=== PATIENT | female | born 1970 | race Caucasian/White ===

== ENCOUNTER 2017-01-25 06:53 | Emergency (ER) | payer OTHER, MEDICAID ==
[~2017-01-25] VITALS: Ht 165.1 cm; Wt 98.0 kg
[2017-01-25] MEDS ORDERED: KETOROLAC 60MG/2ML VIAL IM ONE (07:45)
[2017-01-25] MEDS ORDERED: LIDOCAINE HCL 1% 20ML VIAL (Pyxis) INJ MC ONE (08:45)
[2017-01-25] MEDS ORDERED: TETANUS, DIPHTHERIA, PERTUSSIS VAC/PF 0.5ML (>7YR OLD) IM ONE (08:45)
[2017-01-25] MEDS ORDERED: BACITRACIN ZINC OINT UDPKT TOP ONE (08:45)
[2017-01-25] MEDS ORDERED: TRAMADOL 50MG TABLET PO ONE (11:00)
[2017-01-25 12:30] VITALS: BP 161/89
== END 2017-01-25 12:31 | disposition home or self-care (01) ==
LOC: ER 07:59
DX: S99.921A Unspecified injury of right foot, initial encounter (principal); I10 Essential (primary) hypertension; Z88.0 Allergy status to penicillin; W22.8XXA Striking against or struck by other objects, initial encounter; Y93.89 Activity, other specified; Y92.89 Other specified places as the place of occurrence of the external cause; Y99.8 Other external cause status
CPT/HCPCS: 73630; 81025; 90471; 90715; 96372; 99284; J1885; J3490; X7700; Z7610

== ENCOUNTER 2017-04-27 03:03 | Inpatient (IN) | payer OTHER, MEDICAID ==
[~2017-04-27] VITALS: Ht 160 cm; Wt 93.9 kg
[2017-04-27] MEDS ORDERED: ONDANSETRON HCL 4MG/2ML VIAL IV STA (04:56)
[2017-04-27] MEDS ORDERED: NITROGLYCERIN OINT 1GM/INCH UDPKT TD STA (04:56)
[2017-04-27] MEDS ORDERED: MORPHINE SULFATE 4 MG/ML CPJ (NOT FOR IM USE) IV STA (04:56)
[2017-04-27 05:24] LABS: BASOPHILS % 0.7 % (0.0-2.0); EOSINOPHILS % 4.8 % (0.0-5.0); HEMATOCRIT. 33.8 % (36.0-48.0); LYMPHOCYTES % 43.4 % (20.0-50.0); MEAN CORPUSCULAR HEMOGLOBIN 28.3 pg (28.0-32.0); MEAN CORPUSCULAR VOLUME 86.5 fL (81.0-99.0); MEAN PLATELET VOLUME 7.3 fl (7.4-10.4); MONOCYTES % 7.9 % (2.0-8.0); NEUTROPHILS % 43.2 % (40.0-76.0); PLATELET 279 x1000/uL (130-400); RED BLOOD CELL COUNT 3.91 mill/uL (4.2-5.4); RED CELL DISTRIBUTION WIDTH 17.2 % (11.6-14.6)
[2017-04-27 05:41] LABS: CARBON DIOXIDE 26 mEq/L (21-32); CHLORIDE 100 mEq/L (98-107); TROPONIN I < 0.02 ng/mL (0.00-0.04)
[2017-04-27] MEDS ORDERED: METO25TA6 PO (09:32)
[2017-04-27] MEDS ORDERED: HYDR25TA PO (09:33)
[2017-04-27 10:00] VITALS: BP 149/85
[2017-04-27 10:33] VITALS: BP 142/87
[2017-04-27] MEDS ORDERED: ACETAMINOPHEN 325MG TABLET PO PRN (10:45)
[2017-04-27] MEDS ORDERED: ONDANSETRON HCL 4MG/2ML VIAL IV PRN (10:45)
[2017-04-27] MEDS ORDERED: CLONIDINE 0.1MG TABLET PO PRN (10:45)
[2017-04-27] MEDS ORDERED: MAGNESIUM/ALUMINUM HYDROXIDE/SIMETHICONE 30ML UDC PO PRN (10:45)
[2017-04-27] MEDS ORDERED: DIPHENHYDRAMINE 50MG/ML VIAL IV PRN (10:45)
[2017-04-27] MEDS: METOPROLOL TARTRATE 25MG TABLET PO SCH ×2 (11:05→20:18)
[2017-04-27] MEDS: ASPIRIN 81MG EC TABLET PO SCH (11:05)
[2017-04-27] MEDS: HYDROCHLOROTHIAZIDE 25MG TABLET PO SCH (11:05)
[2017-04-27] MEDS: MORPHINE SULFATE 4 MG/ML CPJ (NOT FOR IM USE) IV PRN ×3 (11:26→20:26)
[2017-04-27 12:00] VITALS: BP 153/86
[2017-04-27] MEDS: SODIUM CHLORIDE 0.9% INJ 3ML FLUSH IVF SCH ×2 (13:19→20:26)
[2017-04-27] MEDS ORDERED: IOHEXOL-350 100 ML BOTTLE ONE (14:04)
[2017-04-27] MEDS ORDERED: SODIUM CHLORIDE 0.9% 10ML VIAL ONE (14:04)
[2017-04-27] MEDS ORDERED: ALPRAZOLAM 0.25 MG TABLET PO SCH (14:30)
[2017-04-27] MEDS ORDERED: ALPRAZOLAM 0.25 MG TABLET PO PRN (14:30)
[2017-04-27] MEDS: ENOXAPARIN 30MG/0.3ML SYR SUBCUT SCH (15:50)
[2017-04-27 16:00] VITALS: BP 138/86
[2017-04-27 20:00] VITALS: BP 148/85
[2017-04-28] VITALS: BP 142/87
[2017-04-28] MEDS: MORPHINE SULFATE 4 MG/ML CPJ (NOT FOR IM USE) IV PRN ×3 (00:42→11:04)
[2017-04-28 04:00] VITALS: BP 131/90
[2017-04-28] MEDS: ENOXAPARIN 30MG/0.3ML SYR SUBCUT SCH (06:12)
[2017-04-28] MEDS: SODIUM CHLORIDE 0.9% INJ 3ML FLUSH IVF SCH (06:16)
[2017-04-28 06:59] LABS: BASOPHILS % 0.4 % (0.0-2.0); EOSINOPHILS % 4.7 % (0.0-5.0); HEMATOCRIT. 34.2 % (36.0-48.0); HEMOGLOBIN. 11.5 g/dL (12.0-16.0); LYMPHOCYTES % 34.4 % (20.0-50.0); MEAN CORPUSCULAR HEMOGLOBIN 28.9 pg (28.0-32.0); MEAN CORPUSCULAR VOLUME 85.9 fL (81.0-99.0); MEAN PLATELET VOLUME 7.8 fl (7.4-10.4); MONOCYTES % 6.5 % (2.0-8.0); PLATELET 281 x1000/uL (130-400); RED BLOOD CELL COUNT 3.98 mill/uL (4.2-5.4)
[2017-04-28 07:35] LABS: CARBON DIOXIDE 27 mEq/L (21-32); CHLORIDE 97 mEq/L (98-107)
[2017-04-28 07:49] LABS: HDL CHOLESTEROL 70 mg/dL (40-59); LDL CHOLESTEROL 69 mg/dL (5-100); TROPONIN I < 0.02 ng/mL (0.00-0.04)
[2017-04-28 08:00] VITALS: BP 127/88
[2017-04-28] MEDS: ASPIRIN 81MG EC TABLET PO SCH (08:53)
[2017-04-28] MEDS: METOPROLOL TARTRATE 25MG TABLET PO SCH (08:53)
[2017-04-28] MEDS: HYDROCHLOROTHIAZIDE 25MG TABLET PO SCH (08:53)
[2017-04-28 12:00] VITALS: BP 136/88
[2017-04-28 16:27] VITALS: BP 137/87
== END 2017-04-28 16:55 | disposition home or self-care (01) | DRG 206 ==
LOC: ER 03:03 → 5WST 05:06 → CANRESERV 07:09 → ENRESERV 07:09
PROVIDERS: ADMIT Internal Medicine; ATTEND Internal Medicine
DX: M94.0 Chondrocostal junction syndrome [Tietze] (principal); I11.9 Hypertensive heart disease without heart failure; F41.0 Panic disorder [episodic paroxysmal anxiety]; F43.9 Reaction to severe stress, unspecified; F32.9 Major depressive disorder, single episode, unspecified; F45.8 Other somatoform disorders; E66.9 Obesity, unspecified; F41.8 Other specified anxiety disorders; Z88.0 Allergy status to penicillin; Z98.891 History of uterine scar from previous surgery; Z98.51 Tubal ligation status; Z82.49 Family history of ischemic heart disease and other diseases of the circulatory system; Z80.3 Family history of malignant neoplasm of breast; Z90.710 Acquired absence of both cervix and uterus; Z90.722 Acquired absence of ovaries, bilateral; Z88.8 Allergy status to other drugs, medicaments and biological substances; Z68.36 Body mass index [BMI] 36.0-36.9, adult
CPT/HCPCS: 36415; 71010; 71275; 80048; 80053; 80061; 83690; 84484; 85025; 85379; 93005; 93306; 96374; 96375; 99285; A4216; J1650; J2270; J2405; Q9967

== ENCOUNTER 2017-05-21 02:53 | Emergency (ER) | payer OTHER, MEDICAID ==
[~2017-05-21] VITALS: Ht 160 cm; Wt 87.0 kg
[~2017-05-21 02:53] MED LIST: HYDR25TA PO; METO25TA6 PO
[2017-05-21] MEDS ORDERED: ONDANSETRON HCL 4MG/2ML VIAL IV STA (03:34)
[2017-05-21] MEDS ORDERED: FAMOTIDINE 20MG/2ML VIAL IV STA (03:34)
[2017-05-21] MEDS ORDERED: MORPHINE SULFATE 4 MG/ML CPJ (NOT FOR IM USE) IV STA (03:34)
[2017-05-21] MEDS ORDERED: SODIUM CHLORIDE 0.9% 1,000 ML IV ONE (03:34)
[2017-05-21 04:00] LABS: BASOPHILS % 0.7 % (0.0-2.0); EOSINOPHILS % 4.2 % (0.0-5.0); HEMATOCRIT. 38.3 % (36.0-48.0); HEMOGLOBIN. 12.7 g/dL (12.0-16.0); LYMPHOCYTES % 46.8 % (20.0-50.0); MEAN CORPUSCULAR HEMOGLOBIN 28.6 pg (28.0-32.0); MEAN CORPUSCULAR VOLUME 86.5 fL (81.0-99.0); MEAN PLATELET VOLUME 7.4 fl (7.4-10.4); MONOCYTES % 5.4 % (2.0-8.0); NEUTROPHILS % 42.9 % (40.0-76.0); PLATELET 343 x1000/uL (130-400); RED BLOOD CELL COUNT 4.43 mill/uL (4.2-5.4); RED CELL DISTRIBUTION WIDTH 16.6 % (11.6-14.6)
[2017-05-21 04:04] LABS: INR 1.1; PROTHROMBIN TIME 11.2 sec (9.4-11.6)
[2017-05-21 04:13] LABS: CHLORIDE 98 mEq/L (98-107); ETHANOL BLOOD 172 mg/dL; TROPONIN I < 0.02 ng/mL (0.00-0.04)
[2017-05-21 04:15] LABS: CARBON DIOXIDE 26 mEq/L (21-32)
[2017-05-21 05:12] LABS: HCG SCREEN NEGATIVE
[2017-05-21 07:20] VITALS: BP 136/81
== END 2017-05-21 08:14 | disposition home or self-care (01) ==
LOC: ER 02:53
DX: K29.20 Alcoholic gastritis without bleeding (principal); F10.288 Alcohol dependence with other alcohol-induced disorder; Y90.6 Blood alcohol level of 120-199 mg/100 ml; Z88.0 Allergy status to penicillin; I10 Essential (primary) hypertension; K44.9 Diaphragmatic hernia without obstruction or gangrene
CPT/HCPCS: 36415; 71010; 74176; 80053; 83690; 83880; 84484; 84703; 85025; 85610; 93005; 96361; 96374; 96375; 99285; G0482; J2270; J2405; J3490; J7030; Z7610

== ENCOUNTER 2017-06-09 02:27 | Emergency (ER) | payer OTHER, MEDICAID | END 2017-06-09 11:53 | disposition left against medical advice (07) | LOC: ER 11:53 | DX: Z53.21 Procedure and treatment not carried out due to patient leaving prior to being seen by health care provider (principal) ==

== ENCOUNTER 2017-07-08 03:38 | Emergency (ER) | payer OTHER, MEDICAID ==
[~2017-07-08] VITALS: Ht 157.5 cm; Wt 75.0 kg
[2017-07-08] MEDS ORDERED: TETRACAINE 0.5% OPHTH DROPS 4ML BOTHEYE ONE (07:30)
[2017-07-08] MEDS ORDERED: ACETAMINOPHEN WITH CODEINE 300/30MG TABLET PO ONE (07:30)
[2017-07-08] MEDS ORDERED: FLUORESCEIN SODIUM 1MG/STRIP BOTHEYE ONE (07:30)
[2017-07-08 08:57] VITALS: BP 144/80
== END 2017-07-08 10:00 | disposition home or self-care (01) ==
LOC: ER 03:39
DX: H10.219 Acute toxic conjunctivitis, unspecified eye (principal); Z88.0 Allergy status to penicillin
CPT/HCPCS: 99283

== ENCOUNTER 2017-09-01 05:06 | Emergency (ER) | payer OTHER, MEDICAID | END 2017-09-01 05:52 | disposition left against medical advice (07) | LOC: ER 05:06 | DX: R51 Headache (principal); Z53.21 Procedure and treatment not carried out due to patient leaving prior to being seen by health care provider ==

== ENCOUNTER 2018-02-19 02:42 | Inpatient (IN) | payer OTHER, MEDICAID ==
[~2018-02-19] VITALS: Ht 160 cm; Wt 81.6 kg
[2018-02-19] MEDS ORDERED: MORPHINE SULFATE 4 MG/ML CPJ (NOT FOR IM USE) IV STA (04:13)
[2018-02-19] MEDS ORDERED: ONDANSETRON HCL 4MG/2ML VIAL IV STA (04:13)
[2018-02-19] MEDS ORDERED: NITROGLYCERIN OINT 1GM/INCH UDPKT TD STA (04:13)
[2018-02-19] MEDS ORDERED: ASPIRIN 81MG TABLET PO STA (04:13)
[2018-02-19 04:47] LABS: BASOPHILS % 0.8 % (0.0-2.0); EOSINOPHILS % 3.5 % (0.0-5.0); HEMATOCRIT. 33.7 % (36.0-48.0); LYMPHOCYTES % 36.3 % (20.0-50.0); MEAN CORPUSCULAR VOLUME 85.6 fL (81.0-99.0); MEAN PLATELET VOLUME 7.2 fl (7.4-10.4); MONOCYTES % 8.7 % (2.0-8.0); NEUTROPHILS % 50.7 % (40.0-76.0); PLATELET 410 x1000/uL (130-400); RED BLOOD CELL COUNT 3.94 mill/uL (4.2-5.4); RED CELL DISTRIBUTION WIDTH 18.1 % (11.6-14.6)
[2018-02-19 04:48] LABS: CHLORIDE 106 mEq/L (98-107)
[2018-02-19 10:07] VITALS: BP 132/80
[2018-02-19 10:54] VITALS: BP 132/80
[2018-02-19] MEDS ORDERED: NITROGLYCERIN 0.4MG TABLET SL SL PRN (11:00)
[2018-02-19] MEDS ORDERED: ONDANSETRON 4MG ODT PO NR (11:04)
[2018-02-19 12:12] VITALS: BP 134/86
[2018-02-19] MEDS: CELECOXIB 200MG CAPSULE PO SCH (12:36)
[2018-02-19] MEDS: HYDROCODONE/ACETAMINOPHEN 5/325MG TABLET PO PRN ×2 (13:25→18:26)
[2018-02-19 15:41] LABS: CLARITY URINE CLOUDY (CLEAR); COLOR URINE YELLOW (YELLOW); KETONES URINE NEGATIVE (NEGATIVE); LEUKOCYTE ESTERASE URINE NEGATIVE (NEGATIVE); NITRITE URINE NEGATIVE (NEGATIVE); OCCULT BLOOD URINE 3+ (NEGATIVE); PROTEIN URINE TRACE (NEGATIVE); SPECIFIC GRAVITY URINE 1.026 (1.005-1.030); UROBILINOGEN URINE 0.2 E.U./dL (0.2-1.0)
[2018-02-19 15:55] LABS: *AMPHETAMINES SCREEN URINE NEGATIVE (NEGATIVE)
[2018-02-19 15:56] LABS: *BARBITURATES SCREEN URINE NEGATIVE (NEGATIVE); *BENZODIAZEPINES SCREEN URINE NEGATIVE (NEGATIVE); *COCAINE SCREEN URINE NEGATIVE (NEGATIVE); METHADONE URINE SCREEN NEGATIVE (NEGATIVE); OPIATES URINE SCREEN NEGATIVE (NEGATIVE); PHENCYCLIDINE URINE SCREEN NEGATIVE (NEGATIVE)
[2018-02-19 15:57] LABS: CANNABINOID URINE SCREEN NEGATIVE (NEGATIVE)
[2018-02-19 16:30] VITALS: BP 118/74
[2018-02-19 17:14] VITALS: BP 118/74
[2018-02-19 20:00] VITALS: BP 115/71
[2018-02-19] MEDS: MORPHINE SULFATE 4 MG/ML CPJ (NOT FOR IM USE) IV PRN (21:30)
[2018-02-19] MEDS: METOPROLOL TARTRATE 25MG TABLET PO SCH (21:30)
[2018-02-20] VITALS: BP 123/78
[2018-02-20] MEDS: MORPHINE SULFATE 4 MG/ML CPJ (NOT FOR IM USE) IV PRN ×3 (02:08→14:36)
[2018-02-20 04:00] VITALS: BP 122/67
[2018-02-20 08:00] VITALS: BP 135/87
[2018-02-20] MEDS ORDERED: ASPIRIN 81MG TABLET PO SCH (09:00)
[2018-02-20] MEDS: CELECOXIB 200MG CAPSULE PO SCH (09:46)
[2018-02-20] MEDS: METOPROLOL TARTRATE 25MG TABLET PO SCH (09:47)
[2018-02-20 12:00] VITALS: BP 132/81
[2018-02-20 16:00] VITALS: BP 116/84
[2018-02-20 16:17] VITALS: BP 116/84
== END 2018-02-20 17:10 | disposition home or self-care (01) | DRG 313 ==
LOC: ER 02:42 → 6WST 04:53 → EDBEDREQTM 05:07 → EDBEDREQ 05:07 → ENRESERV 08:22
PROVIDERS: ADMIT Internal Medicine; ATTEND Internal Medicine
DX: R07.89 Other chest pain (principal); I10 Essential (primary) hypertension; D64.9 Anemia, unspecified; E66.9 Obesity, unspecified; Z88.0 Allergy status to penicillin; Z79.899 Other long term (current) drug therapy; Z68.31 Body mass index [BMI] 31.0-31.9, adult
CPT/HCPCS: 36415; 70450; 71045; 72141; 80053; 80305; 81003; 81025; 83880; 84443; 84484; 85025; 85379; 93005; 93306; 93970; 96374; 96375; 99285; J2270; J2405

== ENCOUNTER 2018-09-23 20:16 | Emergency (ER) | payer OTHER, MEDICAID ==
[~2018-09-23] VITALS: Ht 160 cm; Wt 91.0 kg
[2018-09-24] MEDS ORDERED: KETOROLAC 30MG/ML VIAL IM ONE (01:30)
[2018-09-24] MEDS ORDERED: HYDROCODONE/ACETAMINOPHEN 5/325MG TABLET PO ONE (03:30)
[2018-09-24 06:00] VITALS: BP 154/82
== END 2018-09-24 06:22 | disposition home or self-care (01) ==
LOC: ER 20:16
DX: S82.844A Nondisplaced bimalleolar fracture of right lower leg, initial encounter for closed fracture (principal); I10 Essential (primary) hypertension; Z88.0 Allergy status to penicillin; Z90.710 Acquired absence of both cervix and uterus; W01.0XXA Fall on same level from slipping, tripping and stumbling without subsequent striking against object, initial encounter; Y93.89 Activity, other specified; Y92.511 Restaurant or cafe as the place of occurrence of the external cause
CPT/HCPCS: 29505; 73590; 73610; 96372; 99283; J1885

== ENCOUNTER 2021-05-19 03:58 | Inpatient (IN) | payer MEDICAID, OTHER ==
[~2021-05-19] VITALS: Ht 160 cm; Wt 88.6 kg
[2021-05-19] MEDS ORDERED: DEXAMETHASONE 10 MG/ML VIAL IV ONE (04:45)
[2021-05-19] MEDS ORDERED: EPINEPHRINE 1:1000 1 MG/ML AMP SUBCUT ONE (04:45)
[2021-05-19] MEDS ORDERED: FAMOTIDINE 20MG/2ML VIAL IV ONE (04:45)
[2021-05-19] MEDS ORDERED: SODIUM CHLORIDE 0.9% 1,000 ML IV ONE (04:45)
[2021-05-19] MEDS ORDERED: DIPHENHYDRAMINE 50MG/ML VIAL IV ONE (04:45)
[2021-05-19 04:46] LABS: BASOPHILS % 0.8 % (0.0-2.0); EOSINOPHILS % 2.6 % (0.0-5.0); HEMATOCRIT. 31.5 % (36.0-48.0); HEMOGLOBIN. 10.1 g/dL (12.0-16.0); LYMPHOCYTES % 41.8 % (20.0-50.0); MEAN CORPUSCULAR VOLUME 71.6 fL (81.0-99.0); MONOCYTES % 9.7 % (2.0-8.0); NEUTROPHILS % 45.1 % (40.0-76.0); PLATELET 515 x1000/uL (130-400); RED CELL DISTRIBUTION WIDTH 18.1 % (11.6-14.6)
[2021-05-19 04:54] LABS: CHLORIDE 100 mEq/L (98-107)
[2021-05-19] MEDS ORDERED: CEFTRIAXONE 1 G PREMIX 50 ML IV ONE (06:15)
[2021-05-19] MEDS ORDERED: CLINDAMYCIN 600 MG in DEXTROSE 5% WATER 50 ML IV ONE ×2 (06:15→14:15)
[2021-05-19] MEDS ORDERED: CLINDAMYCIN 600MG PREMIX 50 ML IV ONE (06:45)
[2021-05-19] MEDS ORDERED: SODIUM CHLORIDE 0.9% 1000ML BAG (SEPSIS BOLUS) IV ONE (07:15)
[2021-05-19] MEDS ORDERED: ONDANSETRON HCL 4MG/2ML INJ IV PRN (11:45)
[2021-05-19] MEDS ORDERED: HYDRALAZINE 20MG/ML VIAL IV ONE (11:45)
[2021-05-19] MEDS ORDERED: MORPHINE SULFATE 2 MG/ML CPJ (NOT FOR IM USE) IV ONE (11:45)
[2021-05-19] MEDS ORDERED: DIPHENHYDRAMINE 50MG/ML VIAL IV PRN (11:45)
[2021-05-19] MEDS ORDERED: POTASSIUM CHLORIDE INJ 40 MEQ in DEXT 5% WATER 250 ML IV ONE (12:00)
[2021-05-19] MEDS ORDERED: CLINDAMYCIN 600MG PREMIX 50 ML IV NR (14:15)
[2021-05-19] MEDS: DEXT 5%/0.45% NACL 1000ML 1,000 ML IV SCH (14:26)
[2021-05-19] MEDS: METHYLPREDNISOLONE SOD SUCC 40 MG/ML VIAL IV SCH ×2 (14:27→22:20)
[2021-05-19] MEDS ORDERED: LABETALOL 5MG/ML SYR 20 MG/4 ML SYRINGE IV NR (16:15)
[2021-05-19] MEDS ORDERED: CLINDAMYCIN 600 MG in DEXTROSE 5% WATER 50 ML IV SCH (16:15)
[2021-05-19] MEDS ORDERED: HYDRALAZINE HCL 100MG TABLET PO NR (16:15)
[2021-05-19] MEDS: DIPHENHYDRAMINE 50MG/ML VIAL IV SCH (18:43)
[2021-05-19] MEDS: FAMOTIDINE 20MG/2ML VIAL IV SCH (22:20)
[2021-05-19] MEDS: AZTREONAM 2 GM in DEXT 5% WATER 100 ML IV SCH (22:20)
[2021-05-19] MEDS: HYDRALAZINE HCL 100MG TABLET PO SCH (22:20)
[2021-05-20] MEDS: DEXT 5%/0.45% NACL 1000ML 1,000 ML IV SCH ×2 (01:13→15:36)
[2021-05-20] MEDS: CLINDAMYCIN 600MG PREMIX 50 ML IV SCH ×3 (02:15→17:38)
[2021-05-20 05:29] LABS: BASOPHILS % 0.1 % (0.0-2.0); HEMATOCRIT. 29.6 % (36.0-48.0); HEMOGLOBIN. 9.2 g/dL (12.0-16.0); MEAN CORPUSCULAR HEMOGLOBIN 23.2 pg (28.0-32.0); MEAN CORPUSCULAR VOLUME 74.5 fL (81.0-99.0); MEAN PLATELET VOLUME 7.8 fl (7.4-10.4); MONOCYTES % 4.4 % (2.0-8.0); NEUTROPHILS % 78.5 % (40.0-76.0); PLATELET 500 x1000/uL (130-400); RED BLOOD CELL COUNT 3.97 mill/uL (4.2-5.4); RED CELL DISTRIBUTION WIDTH 18.6 % (11.6-14.6)
[2021-05-20 05:38] LABS: CHLORIDE 106 mEq/L (98-107)
[2021-05-20] MEDS: AZTREONAM 2 GM in DEXT 5% WATER 100 ML IV SCH ×3 (06:04→23:25)
[2021-05-20] MEDS: DIPHENHYDRAMINE 50MG/ML VIAL IV SCH ×5 (06:04→23:04)
[2021-05-20] MEDS: HYDRALAZINE HCL 100MG TABLET PO SCH ×3 (06:05→23:06)
[2021-05-20] MEDS: METHYLPREDNISOLONE SOD SUCC 40 MG/ML VIAL IV SCH ×3 (06:05→23:04)
[2021-05-20] MEDS: AMLODIPINE 10MG TABLET PO SCH ×2 (09:07→09:22)
[2021-05-20] MEDS: FAMOTIDINE 20MG/2ML VIAL IV SCH ×2 (09:56→23:04)
[2021-05-20 10:29] LABS: CLARITY URINE CLEAR (CLEAR); COLOR URINE YELLOW (YELLOW); KETONES URINE NEGATIVE (NEGATIVE); LEUKOCYTE ESTERASE URINE NEGATIVE (NEGATIVE); NITRITE URINE NEGATIVE (NEGATIVE); OCCULT BLOOD URINE 2+ (NEGATIVE); PROTEIN URINE NEGATIVE (NEGATIVE); SPECIFIC GRAVITY URINE 1.008 (1.005-1.030); UROBILINOGEN URINE 0.2 E.U./dL (0.2-1.0)
[2021-05-20] MEDS: TRAMADOL 50MG TABLET PO PRN ×2 (11:13→23:03)
[2021-05-20] MEDS ORDERED: NALOXONE HCL 0.4MG/ML VIAL IV PRN (12:30)
[2021-05-20 14:00] VITALS: BP 129/72
[2021-05-20 14:48] VITALS: BP 129/72
[2021-05-20] MEDS ORDERED: HYDR-4135 MT (15:05)
[2021-05-20 16:00] VITALS: BP 128/70
[2021-05-20 20:00] VITALS: BP 133/81
[2021-05-21] VITALS: BP 128/74
[2021-05-21] MEDS: DEXT 5%/0.45% NACL 1000ML 1,000 ML IV SCH ×2 (03:45→17:10)
[2021-05-21 04:00] VITALS: BP 130/77
[2021-05-21] MEDS: CLINDAMYCIN 600MG PREMIX 50 ML IV SCH ×3 (04:30→17:10)
[2021-05-21] MEDS: HYDRALAZINE HCL 100MG TABLET PO SCH ×3 (06:08→21:29)
[2021-05-21] MEDS: METHYLPREDNISOLONE SOD SUCC 40 MG/ML VIAL IV SCH ×3 (06:08→21:29)
[2021-05-21] MEDS: DIPHENHYDRAMINE 50MG/ML VIAL IV SCH ×3 (06:08→17:10)
[2021-05-21] MEDS: AZTREONAM 2 GM in DEXT 5% WATER 100 ML IV SCH ×2 (06:08→13:04)
[2021-05-21 08:00] VITALS: BP 124/65
[2021-05-21] MEDS: AMLODIPINE 10MG TABLET PO SCH (09:49)
[2021-05-21] MEDS: FAMOTIDINE 20MG/2ML VIAL IV SCH ×2 (09:49→21:29)
[2021-05-21] MEDS: TRAMADOL 50MG TABLET PO PRN ×2 (09:50→21:29)
[2021-05-21 12:00] VITALS: BP 125/74
[2021-05-21 16:00] VITALS: BP 139/73
[2021-05-21] MEDS ORDERED: DEXTROSE 50% WATER 50ML SYRINGE IV PRN (18:00)
[2021-05-21] MEDS: LEVOFLOXACIN 250MG TABLET PO SCH (18:43)
[2021-05-21 20:00] VITALS: BP 112/77
[2021-05-21] MEDS: INSULIN LISPRO 100 UNITS/ML SUBCUT SCH (21:28)
[2021-05-21] MEDS: BLOOD SUGAR DIAGNOSTIC STRIP TEST SCH (21:30)
[2021-05-22] VITALS: BP 135/81
[2021-05-22] MEDS: DIPHENHYDRAMINE 50MG/ML VIAL IV SCH ×4 (00:59→17:09)
[2021-05-22] MEDS: CLINDAMYCIN 600MG PREMIX 50 ML IV SCH ×3 (01:00→17:09)
[2021-05-22 04:00] VITALS: BP 135/72
[2021-05-22] MEDS: TRAMADOL 50MG TABLET PO PRN ×2 (04:04→17:13)
[2021-05-22] MEDS: METHYLPREDNISOLONE SOD SUCC 40 MG/ML VIAL IV SCH ×3 (05:03→21:33)
[2021-05-22] MEDS: DEXT 5%/0.45% NACL 1000ML 1,000 ML IV SCH ×2 (05:03→21:33)
[2021-05-22] MEDS: HYDRALAZINE HCL 100MG TABLET PO SCH ×3 (05:04→21:34)
[2021-05-22] MEDS: BLOOD SUGAR DIAGNOSTIC STRIP TEST SCH ×4 (05:48→21:34)
[2021-05-22] MEDS: INSULIN LISPRO 100 UNITS/ML SUBCUT SCH ×4 (06:16→21:34)
[2021-05-22 08:21] VITALS: BP 122/77
[2021-05-22] MEDS: FAMOTIDINE 20MG/2ML VIAL IV SCH (09:08)
[2021-05-22] MEDS: AMLODIPINE 10MG TABLET PO SCH (09:08)
[2021-05-22] MEDS: LEVOFLOXACIN 250MG TABLET PO SCH (11:14)
[2021-05-22 12:00] VITALS: BP 131/77
[2021-05-22] MEDS ORDERED: IOHEXOL-300 100 ML BOTTLE ONE (15:01)
[2021-05-22 16:00] VITALS: BP 121/70
[2021-05-22] MEDS ORDERED: LEVO750T46 MT (16:25)
[2021-05-22] MEDS ORDERED: CLIN300C12 PO (16:25)
[2021-05-22 20:00] VITALS: BP 122/73
[2021-05-22] MEDS: FAMOTIDINE 20MG TABLET PO SCH (21:34)
[2021-05-23] VITALS: BP 140/79
[2021-05-23] MEDS: DIPHENHYDRAMINE 50MG/ML VIAL IV SCH ×3 (01:00→12:14)
[2021-05-23] MEDS: CLINDAMYCIN 600MG PREMIX 50 ML IV SCH ×2 (01:00→09:44)
[2021-05-23] MEDS: TRAMADOL 50MG TABLET PO PRN ×2 (01:00→09:45)
[2021-05-23 04:00] VITALS: BP 144/75
[2021-05-23] MEDS: METHYLPREDNISOLONE SOD SUCC 40 MG/ML VIAL IV SCH ×2 (05:25→13:21)
[2021-05-23] MEDS: HYDRALAZINE HCL 100MG TABLET PO SCH ×2 (05:26→13:22)
[2021-05-23] MEDS: BLOOD SUGAR DIAGNOSTIC STRIP TEST SCH ×2 (06:01→11:59)
[2021-05-23] MEDS: INSULIN LISPRO 100 UNITS/ML SUBCUT SCH ×2 (06:26→12:14)
[2021-05-23 08:00] VITALS: BP_SYST 119; BP_DIAS 72; BP_DIAS 75
[2021-05-23] MEDS: DEXT 5%/0.45% NACL 1000ML 1,000 ML IV SCH (09:44)
[2021-05-23] MEDS: FAMOTIDINE 20MG TABLET PO SCH (09:45)
[2021-05-23] MEDS: AMLODIPINE 10MG TABLET PO SCH (09:45)
[2021-05-23 12:00] VITALS: BP 131/76
[2021-05-23] MEDS: LEVOFLOXACIN 250MG TABLET PO SCH (12:12)
[2021-05-23 13:02] VITALS: BP 131/76
== END 2021-05-23 15:55 | disposition home or self-care (01) | DRG 720 ==
LOC: ER 03:58 → MICUSO 05:19 → EDBEDREQ 05:33 → EDBEDREQTM 05:33 → 7EST 05-20 11:40 → MICUSO 05-20 11:43 → 7EST 05-20 12:16
PROVIDERS: ADMIT Internal Medicine; ATTEND Internal Medicine
DX: A41.9 Sepsis, unspecified organism (principal); J39.0 Retropharyngeal and parapharyngeal abscess; T78.2XXA Anaphylactic shock, unspecified, initial encounter; E87.1 Hypo-osmolality and hyponatremia; D64.9 Anemia, unspecified; E11.9 Type 2 diabetes mellitus without complications; R65.20 Severe sepsis without septic shock; E87.6 Hypokalemia; I16.0 Hypertensive urgency; E66.9 Obesity, unspecified; I10 Essential (primary) hypertension; Z20.822 Contact with and (suspected) exposure to COVID-19; Z88.0 Allergy status to penicillin; Z82.49 Family history of ischemic heart disease and other diseases of the circulatory system; Z90.710 Acquired absence of both cervix and uterus; Z79.899 Other long term (current) drug therapy; Z68.34 Body mass index [BMI] 34.0-34.9, adult; Z71.3 Dietary counseling and surveillance
CPT/HCPCS: 36415; 70490; 70491; 71045; 80048; 80053; 81003; 82962; 83036; 83605; 83880; 84145; 84484; 85025; 87426; 92610; 93005; 99291; C1893; J0360; J0696; J1100; J1200; J1815; J2270; J2920; J3480; J3490; J7030; J7060; Q9967; U0003; U0005